=== PATIENT | male | born 2000 | race American Indian/Alaskan Native ===

== ENCOUNTER 2021-09-28 11:38 | Emergency (ER) | payer MEDICAID ==
[2021-09-28] MEDS ORDERED: MIDAZOLAM 2 MG/2 ML INJ ONE (11:41)
[2021-09-28] MEDS ORDERED: ROCURONIUM 50 MG/5 ML INJ IV ONE ×6 (11:42→16:14)
[2021-09-28 11:43] VITALS: BP 140/90
[2021-09-28] MEDS ORDERED: ETOMIDATE 20 MG/10 ML INJ IV ONE ×2 (11:43→11:56)
[2021-09-28] MEDS ORDERED: MIDAZOLAM 5 MG/5 ML INJ MDV IV ONE (11:44)
[2021-09-28] MEDS ORDERED: SODIUM CHLORIDE 0.9% 1000 ML 1,000 ML ONE (11:45)
[2021-09-28] MEDS ORDERED: levETIRAcetam 1000 MG/NS 0.75% 1,000 MG/100 ML BAG IV ONE ×4 (11:48→13:33)
[2021-09-28] MEDS ORDERED: SODIUM CHLORIDE 0.9% 1000 ML 1,000 ML IV ONE (11:56)
[2021-09-28] MEDS ORDERED: MIDAZOLAM 5 MG/5 ML INJ MDV IV STA ×2 (11:56→13:24)
[2021-09-28] MEDS ORDERED: LIP THERAPY VASELINE TP PRN (11:56)
[2021-09-28] MEDS ORDERED: MINERAL OIL/PETROLATUM, WHITE OPHTH OINT 3.5 GM OU PRN (11:56)
--- NOTE | 2021-09-28 12:07 | Emergency Department Report ---
ED General Adult HPI - General Chief complaint: Seizure Stated complaint: SEIZURE Time Seen by Provider: 09/28/21 11:55 Source: EMS (Verbal report received from emergency medical services. My EMS discussed), RN notes reviewed, old records reviewed Mode of arrival: Stretcher Limitations: Altered Mental Status, Physical Limitation - History of Present Illness Initial comments: The patient was evaluated in the emergency department for symptoms described in the history of present illness. He/she was evaluated in the context of the global COVID-19 pandemic, which necessitated consideration that the patient might be at risk for infection with the virus that causes COVID-19. Institutional protocols and algorithms that pertain to the evaluation of pat ients at risk for COVID-19 are in a state of rapid change based on information released by regulatory bodies including the CDC and federal and state organizations. These policies and algorithms were followed during the patient's care in the emergency department. Please note that these policies, procedures and recommendations changed on a rapid basis. This is a 21-year-old gentleman. He is brought to the hospital by EMS with an EMS articulated complaint of multiple seizures. Patient is shaking in his stretcher and foaming at the mouth. The patient is not able to describe the qualitative nature of his symptoms, exacerbating factors relieving factors or aggravating factors. All history obtained from EMS. As per verbal report from emergency medical services, patient had a convulsion this morning at 5:00. It is not known how long the convulsion lasted for. Apparently, convulsions stopped, and sometime later, at approximately 11 or 1130 this morning, patient began to have convulsions and seizures as per EMS. EMS reported to myself that the patient is not compliant with his antiepileptic drugs. They report that his Accu-Chek is greater than 100, and they report unremarkable vital signs in the field with the exception of tachycardia. EMS believes that they gave 5 mg of Ativan in the field Upon arrival to this emergency room, the patient is Shaking, convulsing, and has copious secretions from the oropharynx. He has not had anabaptism of normal mental status. Given this, we are concerned that patient is in status epilepticus. He is medicated with 8 mg of Versed. His convulsions stopped. He receives yjy-[id number]-[id number] ventilation, he is induced with 20 mg of etomidate, paralyzed with 100 mg of rocuronium, and intubated with 1 attempt with a 7.5 endotracheal tube, using video laryngoscopy. He is also loaded with 2 g of Keppra. Patient is not able to describe the qualitative nature of his symptoms, exacerbating factors relieving factors or aggravating factors. At the moment, he is not accompanied by friends or family at this time for collateral information or additional information. -: unknown - Related Data Home Medications Medication Instructions Recorded Confirmed Last Taken Divalproex Dr [Depakote] 250 mg PO BID 02/13/13 03/16/13 03/16/13 Methylphenidate HCl [Concerta] 36 mg PO QAM 03/16/13 03/16/13 03/16/13 Ziprasidone [Geodon] 0 mg PO BID 03/16/13 03/16/13 Unknown Previous Rx's Medication Instructions Recorded Last Taken Type Albuterol Sulfate [Ventolin HFA] 2 puff IH Q4H PRN #1 hfa.aer.ad 02/13/13 Unknown Rx Allergies Allergy/AdvReac Type Severity Reaction Status Date / Time No Known Allergies Allergy Unverified 09/28/21 11:47 ED Review of Systems ROS: Stated complaint: SEIZURE Other details as noted in HPI Comment: Unobtainable due to pts medical conditions ED Past Medical Hx - Past Medical History Hx Seizures: Yes (pseudoseizures) Hx Psychiatric Treatment: Yes Additional medical history: Hyperactivity disorder. Mood disorder. - Social History Smoking Status: Never Smoker - Medications Home Medications: Home Medications Medication Instructions Recorded Confirmed Last Taken Type Albuterol Sulfate [Ventolin HFA] 2 puff IH Q4H PRN #1 hfa.aer.ad 02/13/13 03/16/[address] [Depakote] 250 mg PO BID 02/13/13 03/16/13 03/16/13 History Methylphenidate HCl [Concerta] 36 mg PO QAM 03/16/13 03/16/13 03/16/13 History Ziprasidone [Geodon] 0 mg PO BID 03/16/13 03/16/13 Unknown History ED Physical Exam - General Limitations: Altered Mental Status General appearance: obtunded - Head Head exam: Present: atraumatic, normocephalic - Eye Eye exam: Present: normal appearance, PERRL - ENT ENT exam: Present: normal exam, normal orophraynx, mucous membranes moist, normal external ear exam, other (Copious secretions noted in the mouth) - Neck Neck exam: Present: normal inspection. Absent: tenderness, meningismus - Respiratory Respiratory exam: Present: respiratory distress, rhonchi - Cardiovascular Cardiovascular Exam: Present: normal rhythm, tachycardia, normal heart sounds. Absent: bradycardia, irregular rhythm, systolic murmur, diastolic murmur, rubs, gallop - GI/Abdominal GI/Abdominal exam: Present: soft. Absent: distended, tenderness, guarding, rebound, rigid, pulsatile mass - Rectal Rectal exam: Present: normal inspection - exam: Present: normal inspection External exam: Present: normal external exam - Extremities Exam Extremities exam: Present: normal inspection, other (2+ pulses noted in the bilateral upper and lower extremities. There is no palpable cord. negative Homans sign. Muscular compartments are soft. The pelvis is stable.). Absent: pedal edema, calf tenderness - Back Exam Back exam: Present: normal inspection. Absent: tenderness, CVA tenderness (R), CVA tenderness (L), paraspinal tenderness, vertebral tenderness - Neurological Exam Neurological exam: Present: altered (Patient is convulsing and shaking 4 extremities. The patient has a GCS of 3) - Skin Skin exam: Present: warm, dry, intact, normal color. Absent: rash ED Course Vital Signs 09/28/21 09/28/21 09/28/21 11:42 11:58 15:32 Temperature 97 F L Pulse Rate 140 H 70 67 Respiratory 18 16 Rate Blood Pressure 140/90 [Left] O2 Sat by Pulse 100 98 100 Oximetry - Reevaluation(s) Reevaluation #1: 09/28/21 13:21 Differential diagnosis, including but not limited to: Status epilepticus, electrolyte derangement, elevated CK, aspiration, urinary tract infection, toxic encephalopathy, metabolic encephalopathy Assessment and plan: 21-year-old gentleman presenting with multiple convulsions and altered mental status without anabaptism of normal mental status, meeting definition criteria of status epilepticus. He is intubated. He has received 8 mg of Versed here in the emergency room, in addition to 2 g of Keppra. He is not obviously seizing or convulsing at this time. A noncontrast CT scan of the brain and cervical spine are pending. Chest x-ray is pending. Laboratory studies pending. EKG is nonspecific. Glucose in the emergency room approximately 130. We do [facility] have the [facility] I have therefore reached out to [facility], to discuss with neurology critical care on-call, to arrange transfer for definitive services not available at this facility. Patient hemodynamically stable, airway is protected, and he is currently sedated on propofol. 09/28/21 13:26 Patient thrashing around, bucking the vent. 8 mg of Versed ordered. Midazolam drip is ordered. Also discussed this verbally with the nursing team. 09/28/21 13:40 I discussed the patient's history, physical, imaging studies laboratory studies and clinical impression with neurology critical care, Dr. Chang. She will accept the patient as a transfer. Requests an additional 2 mg of Keppra. Shelia stafford has an emergent medical condition which cannot be definitively managed at this hospital, as we do not have continuous EEG monitoring neurology critical care. Airway is protected, hemodynamically suitable for transfer at this time. Patient is emergently and administratively consented by myself for transfer for services not available at this facility. 09/28/21 14:48 Patient is much improved after administration of midazolam. Awaiting ambulance transfer at this time. 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 With manipulation the patient is quite agitated, and trying to extubate himself. He is currently maxed out on propofol and midazolam. EMS is requesting additional medication to facilitate transportation. He received 300 mg ketamine IV push by myself, and 100 mg of rocuronium IV push by myself. Discussed management strategy with EMS. They are agreeable to the plan of care. Hemodynamically stable, airway secured, suitable for transportation at this time for definitive management - Intubation Time Out Performed: No (Emergency situation) Sedative: Etomidate (20 mg) Paralytic: Rocuronium (100 mg) Laryngoscope: fiberoptic video scope Size: 4 Assist Device Used: fiberoptic device ET Tube Size: 7.5 Tube Secured Location: teeth Tube Placement Confirmation: visualized tube passing t, equal breath sounds bilat, confirmation by capnometr Patient Tolerated Procedure: well Intubation Complications: none Additional Comments: Patient receives nasal cannula oxygenation at 15 L/min. He also receives bag -valve-mask ventilation. He is saturating at 100%. After induction and paralysis, video laryngoscopy is performed, after copious oral suctioning, and a 7.5 endotracheal tube is gently inserted into the trachea under direct guidance. The stylette is removed. The airline pilot/first officer balloon is inflated. He has appropriate post intubation capnography color change. Breath sounds are appreciated bilaterally. He does not desaturate. The patient tolerated the procedure well ED Medical Decision Making - Lab Data Result diagrams: 09/28/21 Unknown 09/28/21 Unknown Vital Signs 09/28/21 11:42 Temperature 97 F L Pulse Rate 140 H Respiratory 18 Rate Blood Pressure 140/90 [Left] O2 Sat by Pulse 100 Oximetry Lab Results 09/28/21 09/28/21 09/28/21 Range/Units 12:09 Unknown Unknown WBC 10.1 (4.5-11.0) K/mm3 RBC 4.51 (3.65-5.03) M/mm3 Hgb 13.2 (11.8-15.2) gm/dl Hct 38.1 (35.5-45.6) % MCV 85 (84-94) fl MCH 29 (28-32) pg MCHC 35 H (32-34) % RDW 13.9 (13.2-15.2) % Plt Count 379 (140-440) K/mm3 Lymph % (Auto) 16.1 (13.4-35.0) % Eddy % (Auto) 3.8 (0.0-7.3) % Eos % (Auto) 0.2 (0.0-4.3) % Baso % (Auto) 0.6 (0.0-1.8) % Lymph # (Auto) 1.6 (1.2-5.4) K/mm3 Eddy # (Auto) 0.4 (0.0-0.8) K/mm3 Eos # (Auto) 0.0 (0.0-0.4) K/mm3 Baso # (Auto) 0.1 (0.0-0.1) K/mm3 Seg Neutrophils % 79.3 H (40.0-70.0) % Seg Neutrophils # 8.0 H (1.8-7.7) K/mm3 Sodium (137-145) mmol/L Potassium (3.6-5.0) mmol/L Chloride (98-107) mmol/L Carbon Dioxide (22-30) mmol/L Anion Gap mmol/L BUN (9-20) mg/dL Creatinine (0.8-1.3) mg/dL Estimated GFR ml/min BUN/Creatinine Ratio % Glucose (75-100) mg/dL POC Glucose 130 H (70-105) mg/dL Calcium (8.4-10.2) mg/dL Total Bilirubin (0.1-1.2) mg/dL AST (5-40) units/L ALT (7-56) units/L Alkaline Phosphatase (35-129) units/L Total Creatine Kinase 270 H (55-170) units/L Total Protein (6.3-8.2) g/dL Albumin (3.9-5) g/dL Albumin/Globulin Ratio % Salicylates (2.8-20.0) mg/dL Acetaminophen (10.0-30.0) ug/mL Valproic Acid (50-100) ug/mL Plasma/Serum Alcohol (0-0.07) % 09/28/21 09/28/21 09/28/21 Range/Units Unknown Unknown Unknown WBC (4.5-11.0) K/mm3 RBC (3.65-5.03) M/mm3 Hgb (11.8-15.2) gm/dl Hct (35.5-45.6) % MCV (84-94) fl MCH (28-32) pg MCHC (32-34) % RDW (13.2-15.2) % Plt Count (140-440) K/mm3 Lymph % (Auto) (13.4-35.0) % Eddy % (Auto) (0.0-7.3) % Eos % (Auto) (0.0-4.3) % Baso % (Auto) (0.0-1.8) % Lymph # (Auto) (1.2-5.4) K/mm3 Eddy # (Auto) (0.0-0.8) K/mm3 Eos # (Auto) (0.0-0.4) K/mm3 Baso # (Auto) (0.0-0.1) K/mm3 Seg Neutrophils % (40.0-70.0) % Seg Neutrophils # (1.8-7.7) K/mm3 Sodium 138 (137-145) mmol/L Potassium 3.7 (3.6-5.0) mmol/L Chloride 101.1 (98-107) mmol/L Carbon Dioxide 24 (22-30) mmol/L Anion Gap 17 mmol/L BUN 6 L (9-20) mg/dL Creatinine 0.8 (0.8-1.3) mg/dL Estimated GFR > 60 ml/min BUN/Creatinine Ratio 8 % Glucose 98 (75-100) mg/dL POC Glucose (70-105) mg/dL Calcium 9.6 (8.4-10.2) mg/dL Total Bilirubin 0.30 (0.1-1.2) mg/dL AST 30 (5-40) units/L ALT 43 (7-56) units/L Alkaline Phosphatase 132 H (35-129) units/L Total Creatine Kinase (55-170) units/L Total Protein 7.6 (6.3-8.2) g/dL Albumin 4.5 (3.9-5) g/dL Albumin/Globulin Ratio 1.5 % Salicylates < 0.3 L (2.8-20.0) mg/dL Acetaminophen 5.0 L (10.0-30.0) ug/mL Valproic Acid < 2.8 L (50-100) ug/mL Plasma/Serum Alcohol (0-0.07) % 09/28/21 Range/Units Unknown WBC (4.5-11.0) K/mm3 RBC (3.65-5.03) M/mm3 Hgb (11.8-15.2) gm/dl Hct (35.5-45.6) % MCV (84-94) fl MCH (28-32) pg MCHC (32-34) % RDW (13.2-15.2) % Plt Count (140-440) K/mm3 Lymph % (Auto) (13.4-35.0) % Eddy % (Auto) (0.0-7.3) % Eos % (Auto) (0.0-4.3) % Baso % (Auto) (0.0-1.8) % Lymph # (Auto) (1.2-5.4) K/mm3 Eddy # (Auto) (0.0-0.8) K/mm3 Eos # (Auto) (0.0-0.4) K/mm3 Baso # (Auto) (0.0-0.1) K/mm3 Seg Neutrophils % (40.0-70.0) % Seg Neutrophils # (1.8-7.7) K/mm3 Sodium (137-145) mmol/L Potassium (3.6-5.0) mmol/L Chloride (98-107) mmol/L Carbon Dioxide (22-30) mmol/L Anion Gap mmol/L BUN (9-20) mg/dL Creatinine (0.8-1.3) mg/dL Estimated GFR ml/min BUN/Creatinine Ratio % Glucose (75-100) mg/dL POC Glucose (70-105) mg/dL Calcium (8.4-10.2) mg/dL Total Bilirubin (0.1-1.2) mg/dL AST (5-40) units/L ALT (7-56) units/L Alkaline Phosphatase (35-129) units/L Total Creatine Kinase (55-170) units/L Total Protein (6.3-8.2) g/dL Albumin (3.9-5) g/dL Albumin/Globulin Ratio % Salicylates (2.8-20.0) mg/dL Acetaminophen (10.0-30.0) ug/mL Valproic Acid (50-100) ug/mL Plasma/Serum Alcohol < 0.01 (0-0.07) % - EKG Data -: EKG Interpreted by Me EKG shows normal: sinus rhythm Rate: normal - EKG Data 09/28/21 13:20 The EKG is interpreted at 13: 16 Sinus rhythm, 81 bpm. Normal axis, normal P wave axis, high left ventricular voltage, QTC 4 4 9 ms. This is an abnormal EKG. This is not a STEMI - Radiology Data Radiology results: pending, report reviewed, image reviewed interpreted by me: 1 view x-ray of the chest, interpreted by myself, shows endotracheal tube at the level of the clavicles. No obvious other findings CT head/brain wo con INDICATION / CLINICAL INFORMATION: 21 years Male; Seizure. TECHNIQUE: Routine CT head without contrast. All CT scans at this location are performed using CT dose reduction for ALARA by means of automated exposure control. COMPARISON: None. FINDINGS: BRAIN / INTRACRANIAL CONTENTS: The brain parenchyma demonstrate appropriate attenuation. The ventricular system is within normal limits in size and configuration. There is no clear CT evidence of acute intracranial hemorrhage or significant mass effect. ORBITS: No significant abnormality of visualized orbits. SINUSES / MASTOIDS: There is opacification of the nasal cavity and this intubated patient. Mild mucosal thickening is noted at within the right maxillary sinus. CRANIOCERVICAL JUNCTIO N: No significant abnormality. ADDITIONAL FINDINGS: None. IMPRESSION: 1. There is no CT evidence of acute intracranial process. Signer Name: Christopher Dwyer MD Signed: 09/28/2021 12:08 PM Workstation Name: [id number] CT cervical spine wo con INDICATION: Seizure. TECHNIQUE: Axial CT images of the cervical spine were obtained. Sagittal and coronal reformatted images were produced. All CT scans at this location are performed using CT dose reduction for ALARA by means of automated exposure control. COMPARISON: None available. FINDINGS: ALIGNMENT: Normal alignment. VERTEBRAE: No fracture. Vertebral body heights are preserved. C1 and C2 are congruent. SPONDYLOSIS: No significant spondylosis. SOFT TISSUES: No significant soft tissue abnormality. ADDITIONAL FINDINGS: Patient is intubated. No significant additional findings. IMPRESSION: 1. No significant finding. Signer Name: Venancio Velásquez MD Signed: 09/28/2021 12:07 PM Workstation Name: [id number] CHEST 1 VIEW 09/28/2021 12:41 PM INDICATION / CLINICAL INFORMATION: ETT placement. COMPARISON: None available. FINDINGS: SUPPORT DEVICES: ET tube tip is about 5 cm above the jese. HEART / MEDIASTINUM: No significant abnormali ty. LUNGS / PLEURA: No significant pulmonary or pleural abnormality. No pneumothorax. ADDITIONAL FINDINGS: No significant additional findings. IMPRESSION: 1. Endotracheal tube in expected position. Signer Name: Naeem Corrales MD Signed: 09/28/2021 12:44 PM Workstation Name: [id number] Critical Care Time: Yes Critical care time in (mins) excluding proc time.: 45 Critical care attestation.: If time is entered above; I have spent that time in minutes in the direct care of this critically ill patient, excluding procedure time. ED Disposition Clinical Impression: Status epilepticus, Acute respiratory failure, Acute encephalopathy Disposition: 02 [facility]ORT TERM HOSPITAL Is pt being admited?: No Does the pt Need Aspirin: No Condition: Critical
[2021-09-28] MEDS ORDERED: FAMOTIDINE 20 MG/2 ML INJ IV SCH (13:00)
[2021-09-28] MEDS ORDERED: SENNOSIDES/DOCUSATE SODIUM 8.6/50 MG TAB FEEDTUBE SCH (13:00)
--- NOTE | 2021-09-28 13:11 | Cat Scan Report ---
CT cervical spine wo con INDICATION: Seizure. TECHNIQUE: Axial CT images of the cervical spine were obtained. Sagittal and coronal reformatted images were pro duced. All CT scans at this location are performed using CT dose reduction for ALARA by means of auto mated exposure control. COMPARISON: None available. FINDINGS: ALIGNMENT: Normal alignment. VERTEBRAE: No fracture. Vertebral body heights are preserved. C1 and C2 are congruent. SPONDYLOSIS: No significant spondylosis. SOFT TISSUES: No significant soft tissue abnormality. ADDITIONAL FINDINGS: Patient is intubated. No significant additional findings. IMPRESSION: 1. No significant finding. Signer Name: Venancio Velásquez MD Signed: 09/28/2021 1:07 PM Workstation Name: [id number]
--- NOTE | 2021-09-28 13:12 | Cat Scan Report ---
CT head/brain wo con INDICATION / CLINICAL INFORMATION: 21 years Male; Seizure. TECHNIQUE: Routine CT head without contrast. All CT scans at this location are performed using CT dos e reduction for ALARA by means of automated exposure control. COMPARISON: None. FINDINGS: BRAIN / INTRACRANIAL CONTENTS: The brain parenchyma demonstrate appropriate attenuation. The ventricu lar system is within normal limits in size and configuration. There is no clear CT evidence of acute intracranial hemorrhage or significant mass effect. ORBITS: No significant abnormality of visualized orbits. SINUSES / MASTOIDS: There is opacification of the nasal cavity and this intubated patient. Mild mucos al thickening is noted at within the right maxillary sinus. CRANIOCERVICAL JUNCTION: No significant abnormality. ADDITIONAL FINDINGS: None. IMPRESSION: 1. There is no CT evidence of acute intracranial process. Signer Name: Christopher Dwyer MD Signed: 09/28/2021 1:08 PM Workstation Name: [id number]
[2021-09-28 13:14] LABS: Basophils # (Auto) 0.1 K/mm3 (0.0-0.1); Basophils % (Auto) 0.6 % (0.0-1.8); Eosinophils % (Auto) 0.2 % (0.0-4.3); Hematocrit 38.1 % (35.5-45.6); Hemoglobin 13.2 gm/dl (11.8-15.2); Lymphocytes # (Auto) 1.6 K/mm3 (1.2-5.4); Lymphocytes % (Auto) 16.1 % (13.4-35.0); Mean Corpuscular HGB Conc 35 % (32-34); Mean Corpuscular Volume 85 fl (84-94); Monocytes # (Auto) 0.4 K/mm3 (0.0-0.8); Monocytes % (Auto) 3.8 % (0.0-7.3); Platelet Count 379 K/mm3 (140-440); Red Blood Count 4.51 M/mm3 (3.65-5.03); Red Cell Distribution Width 13.9 % (13.2-15.2)
[2021-09-28] MEDS ORDERED: MIDAZOLAM 2 MG/2 ML INJ IV PRN (13:24)
[2021-09-28 13:27] LABS: Alanine Aminotransferase 43 units/L (7-56); Albumin 4.5 g/dL (3.9-5); BUN/Creatinine Ratio 8; Blood Urea Nitrogen 6 mg/dL (9-20); Calcium 9.6 mg/dL (8.4-10.2); Hemolysis Index 29
--- NOTE | 2021-09-28 13:49 | XRay Report ---
CHEST 1 VIEW 09/28/2021 12:41 PM INDICATION / CLINICAL INFORMATION: ETT placement. COMPARISON: None available. FINDINGS: SUPPORT DEVICES: ET tube tip is about 5 cm above the jese. HEART / MEDIASTINUM: No significant abnormality. LUNGS / PLEURA: No significant pulmonary or pleural abnormality. No pneumothorax. ADDITIONAL FINDINGS: No significant additional findings. IMPRESSION: 1. Endotracheal tube in expected position. Signer Name: Naeem Corrales MD Signed: 09/28/2021 1:44 PM Workstation Name: [id number]
[2021-09-28 13:52] LABS: ABG HCO3 22.6 mmol/L (20.0-26.0); ABG Methemoglobin 0.7 % (0.0-1.5); ABG Oxygen Saturation 99.2 % (95.0-99.0); ABG PCO2 34.3 mm Hg; ABG PH 7.437 pH Units (7.350-7.450); ABG PO2 183.5 mm Hg (80.0-90.0)
[2021-09-28] MEDS ORDERED: MIDAZOLAM/NS Drip 100mg/100ml 100 MG/100 ML BAG IV SCH (14:00)
[2021-09-28] MEDS ORDERED: levETIRAcetam 500 MG in DEXTROSE 5% IN WATER 100 ML IV ONE (15:00)
[2021-09-28] MEDS ORDERED: levETIRAcetam 500 MG in DEXTROSE 5% IN WATER 100 ML IV SCH (15:30)
[2021-09-28] MEDS ORDERED: KETAMINE 500 MG/5 ML VIAL MDV IV ONE (16:00)
--- NOTE | 2021-09-28 17:58 | Electrocardiograph Report ---
[facility] Test Date: 2021-09-28 Test Time: 13:16:38 Pat Name: WES SANTOS Department: Room: Gender: M District Loss Prevention Manager: DAY : 2000 Requested By: BERTA POOL Order Number: [id number] Reading MD: Raina Jessica Measurements Intervals [place] Rate: 81 P: 60 NC: 144 QRS: 33 QRSD: 97 T: 10 QT: 386 QTc: 449 Interpretive Statements Sinus rhythm No previous ECG available for comparison Electronically Signed On 09-28-2021 17:58:34 EDT by Raina Jessica
== END 2021-09-28 17:30 | disposition short-term general hospital (02) ==
LOC: ED 11:38
DX: J96.00 Acute respiratory failure, unspecified whether with hypoxia or hypercapnia (principal); G40.901 Epilepsy, unspecified, not intractable, with status epilepticus; G93.40 Encephalopathy, unspecified; Z20.822 Contact with and (suspected) exposure to COVID-19; Z79.899 Other long term (current) drug therapy
CPT/HCPCS: 31500; 36415; 70450; 71045; 72125; 80053; 80164; 80185; 82550; 82803; 82962; 85025; 93005; 96361; 96374; 96376; 99291; J1953; J2250; J2704; J3490; J7030; J7060; U0003; 80320; 94002; G0480

== ENCOUNTER 2021-12-02 11:48 | Emergency (ER) | payer MEDICAID ==
[2021-12-02] MEDS ORDERED: levETIRAcetam 1000 MG/NS 0.75% 1,000 MG/100 ML BAG IV ONE (12:41)
[2021-12-02] MEDS ORDERED: SODIUM CHLORIDE 0.9% 1000 ML 1,000 ML IV ONE ×5 (12:42→15:29)
[2021-12-02] MEDS ORDERED: ACETAMINOPHEN 650 MG RECT SUPP PR ONE (12:42)
--- NOTE | 2021-12-02 12:46 | Emergency Department Report ---
HPI - General Chief Complaint: Seizure Time Seen by Provider: 12/02/21 12:31 - HPI HPI: Room 22 Patient is a 21-year-old male present with chief complaint of "seizures." Per the patient's mother the patient has a history of pseudoseizures however the patient was reportedly admitted to [facility] last week for status epilepticus where he was intubated. Per the mother the patient was discharged yesterday. Mother states she received a telephone call from the patient's girlfriend today stating that the patient was having seizures. The patient reportedly has been compliant with his Keppra. The mother states the patient was taken off Depakote years ago. ED Past Medical Hx - Past Medical History Hx Seizures: Yes (pseudoseizures) Hx Psychiatric Treatment: Yes (ADHD) Additional medical history: Hyperactivity disorder. Mood disorder. - Surgical History Past Surgical History?: No - Social History Smoking Status: Current Some Day Smoker Substance Use Type: None (No illicit drug use per patient's mother) - Medications Home Medications: Home Medications Medication Instructions Recorded Confirmed Last Taken Type Albuterol Sulfate [Ventolin HFA] 2 puff IH Q4H PRN #1 hfa.aer.ad 02/13/13 03/16/[address] [Depakote] 250 mg PO BID 02/13/13 03/16/13 03/16/13 History Methylphenidate HCl [Concerta] 36 mg PO QAM 03/16/13 03/16/13 03/16/13 History Ziprasidone [Geodon] 0 mg PO BID 03/16/13 03/16/13 Unknown History ED Review of Systems ROS: Stated complaint: SEIZURES Other details as noted in HPI Comment: Unobtainable due to pts medical conditions Physical Exam - Physical Exam Vital Signs: Vital Signs 12/02/21 11:48 Temperature 100 F H Pulse Rate 116 H Respiratory 16 Rate Blood Pressure 138/68 [Left] O2 Sat by Pulse 98 Oximetry Physical Exam: GENERAL: The patient is well-developed well-nourished male lying on stretcher reportedly postictal patient does not respond to verbal or tactile stimuli. [] HEENT: Normocephalic. Atraumatic. Patient has moist mucous membranes. NECK: Supple. Trachea midline CHEST/LUNGS: Clear to auscultation. There is no respiratory distress noted. HEART/CARDIOVASCULAR: Regular. There is tachycardia. There is no gallop rub or murmur. ABDOMEN: Abdomen is soft, nontender. Patient has normal bowel sounds. There is no abdominal distention. SKIN: There is no rash. There is no edema. There is no diaphoresis. NEURO: The patient is reportedly postictal and does not respond to verbal or tactile stimuli. MUSCULOSKELETAL: There is no evidence of acute injury. ED Course Vital Signs 12/02/21 11:48 Temperature 100 F H Pulse Rate 116 H Respiratory 16 Rate Blood Pressure 138/68 [Left] O2 Sat by Pulse 98 Oximetry ED Medical Decision Making - Lab Data Result diagrams: 12/02/21 14:06 12/02/21 14:06 Laboratory Tests 12/02/21 12/02/21 12/02/21 14:06 14:06 15:40 WBC 7.5 RBC 4.19 Hgb 11.8 Hct 36.4 MCV 87 MCH 28 MCHC 32 RDW 14.0 Plt Count 378 Lymph % (Auto) 15.7 [place]atte % (Auto) 8.6 H Eos % (Auto) 0.5 Baso % (Auto) 0.6 Lymph # (Auto) 1.2 [place]atte # (Auto) 0.6 Eos # (Auto) 0.0 Baso # (Auto) 0.0 Seg Neutrophils % 74.6 H Seg Neutrophils # 5.6 Sodium 139 Potassium 3.7 Chloride 99.4 Carbon Dioxide 29 Anion Gap 14 BUN 6 L Creatinine 0.7 L Estimated GFR > 60 BUN/Creatinine Ratio 9 Glucose 91 Calcium 9.3 Magnesium 1.70 Total Bilirubin 0.50 AST 160 H ALT 79 H Alkaline Phosphatase 109 Total Creatine Kinase 6114 H Total Protein 6.8 Albumin 4.2 Albumin/Globulin Ratio 1.6 Urine Opiates Screen Negative Urine Methadone Screen Negative Ur Barbiturates Screen Negative Ur Phencyclidine Scrn Negative Ur Amphetamines Screen Negative Urine Cocaine Screen Negative - Radiology Data Radiology results: report reviewed (CT head), image reviewed (CT head) [facility] [address] [place] [address] Cat Scan Report Signed Patient: WES SANTOS MR#: [id number] 1 : 2000 Acct:[id number] Age/Sex: 21 / M ADM Date: 12/02/21 Loc: ED Attending Dr: Ordering Physician: LAYLA BHAGAT MD Date of Service: 12/02/21 Procedure(s): CT head/brain wo con Accession Number(s): [id number] cc: LAYLA BHAGAT MD CT head/brain wo con INDICATION / CLINICAL INFORMATION: 21 years Male; Seizure-like activity. TECHNIQUE: Routine CT head without contrast. All CT scans at this location are performed using CT dose reduction for ALARA by means of automated exposure control. COMPARISON: The study is compared to the previous CT of 09/28/2021. FINDINGS: BRAIN / INTRACRANIAL CONTENTS: The brain parenchyma appears to demonstrate appropriate attenuation. The ventricular system is within normal limits in size and configuration without evidence of calcified nodules. There is no clear CT evidence of acute intracranial he morrhage or significant mass effect. ORBITS: No significant abnormality of visualized orbits. SINUSES / MASTOIDS: There is mild mucosal thickening within the sphenoid sinuses. CRANIOCERVICAL JUNCTION: No significant abnormality. ADDITIONAL FINDINGS: None. IMPRESSION: 1. There is no CT evidence of acute intracranial process. Signer Name: Christopher Dwyer MD Signed: 12/02/2021 4:30 PM Workstation Name: [id number] Transcribed By: MR Dictated By: Christopher Dwyer MD Electronically Authenticated By: Christopher Dwyer MD Signed Date/Time: 12/02/21 1630 DD/ 1626 TD/TT: - Differential Diagnosis Seizures/pseudoseizures Critical care attestation.: If time is entered above; I have spent that time in minutes in the direct care of this critically ill patient, excluding procedure time. ED Disposition Clinical Impression: Rhabdomyolysis, Seizure-like activity Disposition: ADMITTED INPATIENT Is pt being admited?: Yes Does the pt Need Aspirin: No Condition: Fair Time of Disposition: 16:52 (Care transferred to hospitalist (Dr. Mora))
[2021-12-02 14:31] LABS: Basophils % (Auto) 0.6 % (0.0-1.8); Eosinophils % (Auto) 0.5 % (0.0-4.3); Hematocrit 36.4 % (35.5-45.6); Hemoglobin 11.8 gm/dl (11.8-15.2); Lymphocytes # (Auto) 1.2 K/mm3 (1.2-5.4); Lymphocytes % (Auto) 15.7 % (13.4-35.0); Mean Corpuscular HGB Conc 32 % (32-34); Mean Corpuscular Volume 87 fl (84-94); Monocytes # (Auto) 0.6 K/mm3 (0.0-0.8); Monocytes % (Auto) 8.6 % (0.0-7.3); Platelet Count 378 K/mm3 (140-440); Red Blood Count 4.19 M/mm3 (3.65-5.03)
[2021-12-02 14:53] LABS: Alanine Aminotransferase 79 units/L (7-56); Albumin 4.2 g/dL (3.9-5); Blood Urea Nitrogen 6 mg/dL (9-20); Calcium 9.3 mg/dL (8.4-10.2); Hemolysis Index 9
[2021-12-02 15:07] LABS: BUN/Creatinine Ratio 9
--- NOTE | 2021-12-02 16:34 | Cat Scan Report ---
CT head/brain wo con INDICATION / CLINICAL INFORMATION: 21 years Male; Seizure-like activity. TECHNIQUE: Routine CT head without contrast. All CT scans at this location are performed using CT dos e reduction for ALARA by means of automated exposure control. COMPARISON: The study is compared to the previous CT of 09/28/2021. FINDINGS: BRAIN / INTRACRANIAL CONTENTS: The brain parenchyma appears to demonstrate appropriate attenuation. T he ventricular system is within normal limits in size and configuration without evidence of calcified nodules. There is no clear CT evidence of acute intracranial hemorrhage or significant mass effect. ORBITS: No significant abnormality of visualized orbits. SINUSES / MASTOIDS: There is mild mucosal thickening within the sphenoid sinuses. CRANIOCERVICAL JUNCTION: No significant abnormality. ADDITIONAL FINDINGS: None. IMPRESSION: 1. There is no CT evidence of acute intracranial process. Signer Name: Christopher Dwyer MD Signed: 12/02/2021 4:30 PM Workstation Name: [id number]
[2021-12-02 16:49] LABS: Amphetamine Screen,Urine Negative; Cocaine Screen,Urine Negative; Methadone Screen,Urine Negative; Opiate Screen,Urine Negative
[2021-12-02] MEDS ORDERED: ACETAMINOPHEN 325 MG TAB PO PRN (16:52)
[2021-12-02] MEDS ORDERED: ONDANSETRON 4 MG/2 ML INJ IV PRN (16:52)
[2021-12-02] MEDS ORDERED: MORPHINE 2 MG/1 ML INJ IV PRN (16:52)
[2021-12-02 17:24] LABS: Benzodiazepines Screen,Urine Positive; Cannabinoid Screen,Urine Positive
[2021-12-02 18:33] VITALS: BP 131/78
--- NOTE | 2021-12-02 19:56 | Event Note ---
Date: 12/02/21 patient evaluated Sitting in the bed and talking on phone. No postictal changes. Alert and oriented. Labs evaluated. Diagnosis Seizure disorder Mild rhabdomyolysis Patient given prescription for Keppra 750 twice daily Advised about compliance Plenty of fluids
== END 2021-12-02 18:35 | disposition admitted as inpatient to this hospital (09) ==
LOC: ED 11:48 → 4A 16:52 → UNDOADMIN 16:52 → UNDODISIN 18:40
DX: R56.9 Unspecified convulsions (principal); M62.82 Rhabdomyolysis; F90.9 Attention-deficit hyperactivity disorder, unspecified type; F17.200 Nicotine dependence, unspecified, uncomplicated
CPT/HCPCS: 36415; 70450; 80053; 80307; 82550; 83735; 85025; 96361; 96374; 99284; 99285; G0378; J1953; J7030